=== PATIENT | male | born 1975 | race Hispanic/Latino ===

== ENCOUNTER 2025-01-11 08:49 | Emergency (ER) | payer BC ==
[2025-01-11] MEDS ORDERED: Meloxicam 15 MG TAB PO SCH (10:00)
== END 2025-01-11 11:01 | disposition home or self-care (01) ==
LOC: ERS 08:49
DX: M25.562 Pain in left knee (principal); E11.9 Type 2 diabetes mellitus without complications; I10 Essential (primary) hypertension; E03.9 Hypothyroidism, unspecified; Z79.899 Other long term (current) drug therapy
CPT/HCPCS: 99283